=== PATIENT | male | born 1960 | race Caucasian/White ===

== ENCOUNTER → 2021-08-10 | Outpatient (CLI) | payer MEDICARE ==
[~2021-08-10] MED LIST: LEVOXYL25 MCG PO; LORTAB 7.5-3251 EACH PO; METOPROLOL TART25 MG PO; PAROXETINE HCL20 MG PO; PROTONIX40 MG PO
== END ==
LOC: KOH-I 08-04 11:30
DX: F17.210 Nicotine dependence, cigarettes, uncomplicated (principal)
CPT/HCPCS: 71271